=== PATIENT | female | born 1995 | race Two or more races ===

== ENCOUNTER → 2022-12-06 | Outpatient (CLI) | payer OTHER, SELFPAY | LOC: M WHC 13:09 | PROVIDERS: ATTEND Nurse Practitioner Family | DX: N93.9 Abnormal uterine and vaginal bleeding, unspecified (principal) ==

== ENCOUNTER → 2024-01-03 | Outpatient (CLI) | payer OTHER | LOC: M WHC 10:44 | PROVIDERS: ATTEND Family Medicine | DX: N63.15 Unspecified lump in the right breast, overlapping quadrants (principal) ==